=== PATIENT | male | born 1965 | race Two or more races ===

== ENCOUNTER 2023-05-04 16:26 | Emergency (ER) | payer OTHER ==
[~2023-05-04] VITALS: Ht 177.8 cm; Wt 118.4 kg
[2023-05-04] MEDS ORDERED: KETOROLAC TROMETH 60MG/2ML VIAL IM ONE (17:30)
[2023-05-04 21:50] VITALS: BP 142/75; PULSE 71; RESP 18; TEMP 99.2; O2SAT 96
[2023-05-04] MEDS ORDERED: METH-1181 PO (21:53)
[2023-05-04] MEDS ORDERED: IBUP-1455 PO (21:53)
[2023-05-04] MEDS ORDERED: HYDROcodone-ACET 7.5/325MG TAB PO ONE (22:00)
== END 2023-05-04 22:18 | disposition home or self-care (01) ==
LOC: ER 16:26
DX: M54.50 Low back pain, unspecified (principal); R10.84 Generalized abdominal pain; M79.10 Myalgia, unspecified site; Z79.1 Long term (current) use of non-steroidal anti-inflammatories (NSAID); Z79.899 Other long term (current) drug therapy; V59.49XA Driver of pick-up truck or van injured in collision with other motor vehicles in traffic accident, initial encounter; Y93.I9 Activity, other involving external motion; Y92.89 Other specified places as the place of occurrence of the external cause; Y99.8 Other external cause status
CPT/HCPCS: 72040; 72070; 73030; 74176; 96372; 99285; J1885